=== PATIENT | male | born 1970 | race Caucasian/White ===

== ENCOUNTER 2025-02-13 19:27 | Emergency (ER) | payer BC, SELFPAY ==
[2025-02-13 19:28] VITALS: BP 140/96
[2025-02-13 19:46] LABS: % Basophils 0.8 % (0-2); % Eosinophils 1.3 % (0-6); % Immature Granulocytes 0.2 % (0-0.5); % Lymphocytes 48.9 % (20.5-51.1); % Monocytes 8.9 % (1.7-9.3); % Neutrophils 39.9 % (42.2-75.2); Absolute Basophils 0.1 10^3/uL (0-0.2); Absolute Eosinophils 0.1 10^3/uL (0-0.7); Absolute Monocytes 0.5 10^3/uL (0.1-0.6); Absolute Neutrophils 2.4 10^3/uL (1.4-6.5); Hematocrit 43.7 % (39.0-52.0); Hemoglobin 15.4 g/dL (13.0-18.0); Mean Corp Hgb Conc. 35.2 g/dL (33.0-37.0); Mean Corpuscular Volume 85.2 fL (80.0-94.0); Mean Platelet Volume 11.3 fL (7.4-10.4); Nucleated Red Blood Cells % 0 % (-); Platelet Count 176 10^3/uL (130-400); Red Blood Cell Count 5.13 10^6/uL (4.70-6.10); Red Cell Dist. Width 11.6 % (11.5-14.5); White Blood Cell Count 6.1 10^3/uL (4.8-10.8)
[2025-02-13 20:01] LABS: ALT (SGPT) 40 U/L (0-50); AST (SGOT) 32 U/L (17-59); Albumin 4.4 g/dl (3.5-5.0); Alkaline Phosphatase 84 U/L (38-126); Blood Urea Nitrogen 20 mg/dl (9-20); Calcium 9.5 mg/dl (8.4-10.2); Carbon Dioxide 29 mmol/L (22-30); Chloride 104 mmol/L (98-107); Glucose 98 mg/dl (70-99); Lipase 142 U/L (23-300); Potassium 3.8 mmol/L (3.5-5.1); Sodium 142 mmol/L (135-145); Total Bilirubin 0.6 mg/dl (0.2-1.3); Total Protein 7.3 g/dl (6.3-8.2); eGFR > 60.00
[2025-02-13 20:12] LABS: Troponin I < 0.012 ng/ml
[2025-02-13 20:56] VITALS: BP 146/96
[2025-02-13 21:00] VITALS: BP 138/107
[2025-02-13 21:07] VITALS: BMI 23.9
[2025-02-13 22:00] VITALS: BP 136/100
--- NOTE | 2025-02-13 22:47 | ED.GENMED ---
History of Present Illness
General
Chief Complaint: Cardiac Symptoms
Source: patient
Exam Limitations: none
Time Seen by Provider: 02/13/25 22:09
Nursing documentation reviewed up to this point in time: agreed with
History of Present Illness
History of Present Illness:
Pleasant 54-year-old male presents the emergency department with several months of heartburn. He states that this heartburn waxes and wanes but is present most of the time. He states that it is not influenced by foods or alcohol intake. He does
drink but very sporadically. He does not smoke tobacco. He has been to his family doctor and started on Nexium and Prevacid. Patient states that that has helped slightly. Patient is concerned because 1 incidence where she is afraid that food
will get caught in his esophagus. 4 years ago he had a CAT scan of his chest and he states that there was a nodule on his lung that he never followed up.
Vital signs are stable. Patient not hypoxic
Nursing note reviewed. I agree with nursing documentation up to this point in time.
Home Meds and allergies reviewed.
NUMBER AND COMPLEXITY OF PROBLEMS ADDRESSED AT THE ENCOUNTER
� Chronic conditions affecting care: GERD
� Acute Exacerbation and/or Progression of Chronic Illness:
� Differential Diagnosis includes: ACS, GERD, less likely PE
AMOUNT AND/OR COMPLEXITY OF DATA TO BE REVIEWED AND ANALYZED
I performed an independent evaluation of the following and my interpretation is:
EKG:
Pulse Ox: Not Hypoxic
Labels Molder: Sinus Rhythm
CT:
X-rays:
Ultrasound:
Laboratory Studies: Lab work looks good. Troponin negative.
Other:
Review of other/old records: Previous CT scan
IMPRESSION:
1. Mild circumferential wall thickening throughout the colon and rectum suspicious for a mild colitis.
2. No CT evidence for pericolonic abscess, ascites, pneumatosis, or pneumoperitoneum.
3. 5 mm round rim-calcified mass in the retroperitoneal fat posterior to the right kidney which is also seen on the radiographic examination performed 09/23/2020. The rim calcification suggests a benign lesion, although the Hounsfield units
suggest that it may be enhancing raising the possibility of a small neoplasm.
4. 1 mm nonobstructing left intrarenal calculus.
5. Small hiatal hernia.
6. Mildly enlarged prostate gland and moderate enlargement of the seminal vesicles.
7. 1.2 cm mass in the lateral subcutaneous fat of the upper abdominal wall which is likely a sebaceous cyst.
8. 4 mm solid pulmonary nodule in the right lower lobe. If the patient is considered high risk, a follow-up CT examination of the chest in 12 months is recommended.
The [facility]monary Nodule Advisory Board hotline was called with the findings at 09/28/2020 at 9:28 AM.
Clinical information was obtained by an independent historian:
Prescriptions/Medications Considered but not given:
Further testing considered but not performed:
RISK OF COMPLICATIONS AND/OR MORBIDITY OR MORTALITY OF PATIENT MANAGEMENT
Social determinants of health affecting care: Good Social Support
Discussion with other providers:
Escalation of care including admission/observation vs risk of discharge considered: After being observed in the emergency department, patient is
CRITICAL CARE NOTE:
Total Time (exclusive of procedures):
Update:
Review of Systems
Review of Systems
Allergies reviewed?: Yes
All Other Systems: ROS reviewed and negative except as documented in HPI and ROS
Constitutional: Reports no symptoms
EENT: Reports no symptoms
Respiratory: Reports no symptoms
Cardiac: Reports chest pain
ABD/GI: Reports abdominal pain
: Reports no symptoms
Musculoskeletal: Reports no symptoms
Skin: Reports no symptoms
Neurological: Reports no symptoms
Endocrine: Reports no symptoms
Hematologic/Lymphatic: Reports no symptoms
Psychiatric: Reports anxiety
Phy Exam
General Physical Exam
General Presentation: well appearing and no apparent distress
General Skin: warm and dry
General Habitus: normal
General Mental: alert
General Hydration: appears well hydrated
ENT Exam
ENT Exam: EOMI, pharynx normal, neck supple and normocephalic
Eye Exam
Eye Exam: PERRL, cornea clear and conjunctiva normal
Cardiovascular Exam
Cardiovascular Exam: regular rate/rhythm, no edema, no murmur and normal peripheral pulses
Pulmonary Exam
Pulmonary Exam: lungs clear, no respiratory distress, no rales, no crackles, no rhonchi, no stridor, no wheezing and no cough
Gastrointestinal Exam
Gastrointestinal Exam: normal bowel sounds, non tender, soft, no organomegaly, no pulsatile mass and non distended
Neurological Exam
Neurological Exam: alert, oriented x3, no motor deficits and speech normal
Musculoskeletal Exam
Musculoskeletal Exam: full ROM and no edema
Skin Exam
Skin Exam: normal color, warm/dry, no rash and no petechia
Psychiatric Exam
Psychiatric Exam: normal mood/affect
Course
Orders/Labs/Results
Orders:
Orders
02/13/25 19:27
Electrocardiogram (*1) Urgent
Reason for Study: Chest Pain
02/13/25 19:28
EKG- Treatment ONCE
02/13/25 19:40
Complete Blood Count/With Diff Urgent
Comprehensive Metabolic Panel Urgent
Lipase Urgent
Troponin I Urgent
02/13/25 22:46
Sucralfate Suspension [Carafate Suspension] 1 gm PO NOW STA
02/13/25 22:58
D-Dimer Urgent
02/14/25 00:00
CT Chest With Iv Contrast Urgent
Reason For Exam: pain, hx of pulm nodules
Abnormal Lab Results
02/13/25
19:40
MPV 11.3 H fL
(7.4-10.4)
Neutrophils % 39.9 L %
(42.2-75.2)
02/13/25 19:40
02/13/25 19:40
Vital Signs
Initial and Last Documented VS:
Initial Vital Signs
Temp Pulse Resp BP Pulse Ox
97.9 F 71 18 140/96 99
02/13/25 19:28 02/13/25 19:28 02/13/25 19:28 02/13/25 19:28 02/13/25 19:28
Last Documented Vital Signs
Temp Pulse Resp BP Pulse Ox
97.6 F 55 14 154/108 96
02/13/25 21:07 02/13/25 23:30 02/13/25 23:30 02/13/25 23:00 02/13/25 22:45
*Critical Care Note
Total Time (30-74mins, 75-104mins- exclusive of procedures): Not Applicable
Update Note
Update Note:
CT chest with contrast, routine exam
No comparison exam
IMPRESSION:
Heart is normal in contour.
No pleural or pericardial effusion.
Aberrant right subclavian artery incidentally noted, variant anatomy.
Central airways are patent.
No consolidation.
Minimal dependent atelectasis.
4 mm nodule right lower lobe.
Subcentimeter bilateral thyroid nodules.
Mild bilateral gynecomastia.
[place] texted gastroenterology for possible priority appointment
ED Attending Note
-
Portions of this chart may have been created with voice recognition software.� Occasional wrong word or��sound alike� substitutions may have occurred due to the inherent limitations of voice recognition software.
Discharge Plan
Departure
Patient Disposition: Home (Routine Discharge)
Date of Disposition: 02/14/25
Time of Disposition: 00:46
Patient with high blood pressure during this ER visit?: Yes
Condition: Good
Discharge Problem:
GERD (gastroesophageal reflux disease), Chest pain, Pulmonary nodule
Instructions: Chest Pain (DC), Acid reflux and GERD in adults, BLOOD PRESSURE
Prescriptions:
New
sucralfate [Carafate] 100 mg/mL suspension
10 ml PO QID Qty: 200 0RF
Referrals:
Ron Urbina DO [Family Provider] -
Ena Gautam MD [Active] -
Activity Restrictions/Additional Instructions:
It was a pleasure meeting you and taking part in your care. We hope for your continued healing and wellness.
Please read discharge instructions in their entirety. However, they are for general education and may not describe your exact diagnosis at discharge. Information on your ER visit and medical conditions were discussed with you along with appropriate
follow up information...
If indicated, please take your medications as instructed and indicated on discharge paperwork.
Please schedule a follow up appointment as directed. Call to schedule an appointment
Please return to the emergency department with ANY change in, persisting, or worsening of symptoms. If any of your symptoms do not improve, or persist, or become more severe within 6-12 hours, please return to the emergency department for further
care.
Please return to the emergency department if you develop a headache, neck pain/stiffness, fever greater than 100.4F, chest pain, shortness of breath, persistent nausea, vomiting, slurred speech, difficulty walking, numbness/tingling, weakness, signs
of infection or any other symptoms that are worrisome to you.
If you have any questions or concerns please do not hesitate to call the Hospital at or E-mail me directly at [email or web address]
Interventions
Interventions:
*Risk Screen - Suicide Last Done: 02/13/25 19:30
*General Assessment Last Done: 02/13/25 19:30
*Neglect/Abuse Screening Last Done: 02/13/25 19:30
*ED- Fall Risk Assessment Last Done: 02/13/25 21:06
*ED COVID-19 Vaccine History Last Done: 02/13/25 19:30
*Nursing Disposition Last Done: 02/14/25 00:58
ED- Pulmonary Assessment Last Done: 02/13/25 21:07
ED- Cardiac Assessment Last Done: 02/13/25 21:07
Discharge Date and Time
Discharge Date/Time: 02/14/25 01:10
Print Language: PORTUGUESE
[2025-02-13] MEDS: CARAFATE SUSPENSION 1 GM PO (22:50)
[2025-02-13 23:00] VITALS: BP 154/108
[2025-02-13 23:17] LABS: D-Dimer < 0.27 ug/mlFEU (0.00-0.50)
== END 2025-02-14 01:10 | disposition home or self-care (01) ==
LOC: EMR 19:27
PROVIDERS: Emergency Medicine; EMERGENCY PHYSICIAN Student in an Organized Health Care Education/Training Program; FAMILY PHYSICIAN Family Medicine
DX: K21.9 Gastro-esophageal reflux disease without esophagitis (principal); R07.89 Other chest pain; R91.1 Solitary pulmonary nodule
CPT/HCPCS: 99284; 71260; 80053; 83690; 84484; 85025; 85379; 93005; Q9967

== ENCOUNTER 2025-02-23 06:22 | Day surgery (SDC) | payer BC, SELFPAY | END 2025-02-23 12:41 | disposition home or self-care (01) | LOC: GI 06:22 | PROVIDERS: ATTENDING PHYSICIAN Internal Medicine Gastroenterology | DX: Z12.11 Encounter for screening for malignant neoplasm of colon (principal); K64.8 Other hemorrhoids; R13.10 Dysphagia, unspecified; K44.9 Diaphragmatic hernia without obstruction or gangrene; K22.89 Other specified disease of esophagus; K21.9 Gastro-esophageal reflux disease without esophagitis; D12.0 Benign neoplasm of cecum; K63.5 Polyp of colon; K62.1 Rectal polyp; K22.70 Barrett's esophagus without dysplasia; Z86.0101 Personal history of adenomatous and serrated colon polyps | CPT/HCPCS: 45380; 43239; 88305; 88342 ==